=== PATIENT | female | born 2000 | race Caucasian/White ===

== ENCOUNTER 2022-05-18 07:17 | Emergency (ER) | payer OTHER, SELFPAY ==
[2022-05-18] VITALS (11 sets, daily range): BP systolic 119–146; BP diastolic 78–104; PULSE 64–86; RESP 18; TEMP 36.2; O2SAT 95–100; BMI 32.9
--- NOTE | 2022-05-18 08:14 | CRLHL7_ITS ---
For Patients: As a result of the Century Cures Act, medical imaging exams and procedure reports are released immediately into your electronic medical record. You may view this report before your referring provider. If you have questions, please contact your health care provider. INDICATION: Flank pain. TECHNIQUE: CT abdomen and pelvis without contrast. COMPARISON: None. FINDINGS: Lower chest: Unremarkable. Liver: Normal in size and attenuation. No suspicious masses. Gallbladder and bile ducts: No stones or inflammation. No biliary dilatation. Pancreas: Unremarkable. No mass or inflammation. Spleen: Normal in size. No masses. Adrenal glands: Normal in size. No nodules. Kidneys: Moderate/severe right hydroureteronephrosis due extending into the level of 5 millimeter stone in the distal right ureter located near the right adnexa (axial series 2 image 116). Small additional bilateral nonobstructing renal calculi. No left-sided hydronephrosis. GI tract: No bowel obstruction or focal bowel wall thickening. Multiple radiodense appendicoliths. Appendix otherwise normal. No diverticular disease. Vasculature: Abdominal aorta is normal in caliber. Lymph nodes: No lymphadenopathy. Peritoneum/Abdominal Wall: Unremarkable. No sign of mass or infiltration. No free air or significant free fluid. Pelvis: Unremarkable. No pelvic masses. Bones: Unremarkable for age. IMPRESSION: 1. 5 millimeter stone in the distal right ureter results in moderate-severe right hydronephrosis. 2. Additional small bilateral nonobstructing renal calculi. Please note that all CT scans at this facility use dose modulation, iterative reconstruction, and/or weight-based dosing when appropriate to reduce radiation dose to as low as reasonably achievable. Dictated by Aaron Butterfield MD @ 05/18/2022 9:18:23 AM (Electronically Signed)
--- NOTE | 2022-05-18 08:15 | CRLHL7_ITS ---
For Patients: As a result of the Century Cures Act, medical imaging exams and procedure reports are released immediately into your electronic medical record. You may view this report before your referring provider. If you have questions, please contact your health care provider. INDICATION: Abdominal Pain TECHNIQUE: Ultrasound pelvis transabdominal and transvaginal for better assessment or to better visualize the endometrium. Real-time sonographic images with spectral and color Doppler imaging of the ovaries were obtained. COMPARISON: None FINDINGS: Uterus: 7.3 x 3.2 x 4.1 cm. Normal echotexture of the myometrium. No masses. Endometrium: Transvaginal imaging was performed to better evaluate the endometrium. Endometrial thickness measures 6 mm. No sign of endometrial mass or fluid. Right ovary measures 4.5 x 2.4 x 3.0 cm and left ovary measures 3.5 x 2.3 x 2.2 cm. There is demonstration of a somewhat echogenic focus within the right ovary with likely punctate calcification measuring 1.2 x 1.0 x 1.4 centimeters. Normal arterial and venous blood flow is demonstrated in both ovaries. Cul-de-sac: No significant free fluid. IMPRESSION: Demonstration of a small echogenic focus measuring 1.2 centimeters within the right ovary with suggestion of punctate calcification which may represent a small vascular lesion versus a small dermoid. Consider follow-up with repeat ultrasound in 1 years time to document stability. Otherwise, grossly unremarkable pelvic sonogram without evidence of acute abnormality. Dictated by Seth Keller MD @ 05/18/2022 9:32:56 AM (Electronically Signed)
--- NOTE | 2022-05-18 08:16 | ED_ITS ---
HPI - General Adult General Time Seen by Provider: 08:16 Date Seen: 05/18/22 Chief complaint: Abdominal Pain Stated complaint: lower right abdominal pain Time Seen by Provider: 05/18/22 08:20 Source: patient Mode of arrival: ambulatory Limitations: no limitations History of Present Illness HPI narrative: Patient is a 22-year-old female whose last menstrual period was 2 weeks ago who presents with sudden onset of abdominal pain about 4 this morning. She presents to ER for evaluation. She is in moderate distress secondary to discomfort. She points to her right lower quadrant. She has had no control, does not believe she is , has had no vaginal bleeding or discharge. Sudden onset of the pain. She has had a ruptured ovarian cyst before, but no abdominal surgery. States this feels similar to ruptured ovarian cyst. She has no appetite, has had no vomiting. She presents to ER for evaluation. She was briefly seen by Dr. Nelson then I assumed the shift Related Data Home Medications Medication Instructions Recorded Confirmed sertraline 100 mg tablet 100 mg PO DAILY 05/18/22 05/18/22 Previous Rx's Medication Instructions Recorded ketorolac 10 mg tablet 10 mg PO Q8H PRN pain #7 tabs 05/18/22 Allergies Allergy/AdvReac Type Severity Reaction Status Date / Time No Known Drug Allergies Allergy Verified 05/18/22 07:55 Review of Systems Status of ROS: Reports: 10 or more systems reviewed and unremarkable except as noted in History and below [facility] Social History Smoking Status: Never smoker How often do you have a drink containing alcohol: never How often do you have six or more drinks on one occasion: Never AUDIT-C Alcohol total score: 0 Non-prescribed substance use: denies use Exam Narrative: Exam Narrative: Objective: Vital signs unremarkable she is in moderate distress HEENT unremarkable Neck is supple Abdomen benign soft nontender No rebound, no peritoneal signs, mild right lower quadrant tenderness tenderness to palpation Extremities are no edema Neurologic nonfocal Const: Vital Signs, click to edit/add: Vital Signs - 24 hr 05/18/22 07:55 05/18/22 09:08 05/18/22 09:30 Temperature 97.2 F L Pulse Rate Pulse Rate [Right] 75 64 Respiratory Rate 18 Blood Pressure Blood Pressure [Ri ght Upper Arm] 146/104 H 136/86 143/99 H Pulse Oximetry 97 96 Oxygen Delivery Me thod Room Air Room Air 05/18/22 09:43 05/18/22 10:00 05/18/22 10:01 Temperature Pulse Rate 86 68 68 Pulse Rate [Right] Respiratory Rate Blood Pressure 137/85 Blood Pressure [Ri ght Upper Arm] Pulse Oximetry 100 96 95 Oxygen Delivery Me thod 05/18/22 10:02 05/18/22 10:30 05/18/22 10:32 Temperature Pulse Rate 67 68 68 Pulse Rate [Right] Respiratory Rate Blood Pressure 124/81 Blood Pressure [Ri ght Upper Arm] Pulse Oximetry 95 96 96 Oxygen Delivery Me thod 05/18/22 11:00 05/18/22 11:01 Temperature Pulse Rate 76 79 Pulse Rate [Right] Respiratory Rate Blood Pressure 119/78 Blood Pressure [Ri ght Upper Arm] Pulse Oximetry 98 97 Oxygen Delivery Me thod Course Vital Signs Vital signs: Initial Vital Signs Temperature 97.2 F L 05/18/22 07:55 Temperature Source Temporal Artery Scan 05/18/22 07:55 Pulse Rate 75 05/18/22 07:55 Respiratory Rate 18 05/18/22 07:55 Blood Pressure 146/104 H 05/18/22 07:55 Blood Pressure Mean 118 05/18/22 07:55 Blood Pressure Position Sitting 05/18/22 07:55 Pulse Oximetry 97 05/18/22 07:55 Oxygen Delivery Method 05/18/22 07:55 Vital Signs Temperature 97.2 F L 05/18/22 07:55 Pulse Rate 75 05/18/22 07:55 Respiratory Rate 18 05/18/22 07:55 Blood Pressure 146/104 H 05/18/22 07:55 Pulse Oximetry 97 05/18/22 07:55 Oxygen Delivery Method 05/18/22 07:55 Temperature 97.2 F L 05/18/22 07:55 Pulse Rate 79 05/18/22 11:01 Respiratory Rate 18 05/18/22 07:55 Blood Pressure 119/78 05/18/22 11:01 Pulse Oximetry 97 05/18/22 11:01 Oxygen Delivery Method 05/18/22 09:08 Medical Decision Making MDM Narrative Medical decision making narrative: Patient presents with significant right lower quadrant pain, rule out ovarian cyst, appendicitis, kidney stone, colitis. Patient will get a CT scan of the abdomen will get a pelvic ultrasound, labs, IV fluids, will interpret the inter being drawn labs disposition pending findings above and clinical response please see addendum dictation. Addendum: The patient has a distal right kidney stone 5 mm hydronephrosis on the right. Will keep her in the ER, IV Toradol, morphine been given. IV fluids, observation hopefully this will pass. Ultrasound of pelvis looks largely unremarkable Addendum: The patient has marked relief in her pain. I suspect she passed her stone. Will have her strain her urine for 48 hours, Toradol as needed, fluids, update her regular doctor as needed, she catches the stone to bring back to the hospital for analysis. She has reported kidney stones in the past. She also has a history of kidney stones in the kidney still that are non ureteral. Lab Data Labs: Lab Results 05/18/22 05/18/22 05/18/22 Range/Units 08:05 08:05 08:05 WBC 10.92 (4.50-11.00) K/uL RBC 5.11 (4.00-5.20) m/uL Hgb 13.5 (12.0-16.0) gm/dL Hct 41.0 (33.0-51.0) % MCV 80 (80-100) fL MCH 26 (26-34) pg MCHC 33 (32-36) gm/dL RDW Coeff of Steven 13.6 (11.5-15.5) % Plt Count 346 (140-440) K/uL Neut % (Auto) 80.8 H (42.0-72.0) % Lymph % (Auto) 13.1 L (20-44) % Weber % (Auto) 4.5 (0.0-11.0) % Eos % (Auto) 1.4 (0.0-7.0) % Baso % (Auto) 0.1 (0.0-3.0) % Neut # (Auto) 8.80 H (1.7-7.0) K/uL Lymph # (Auto) 1.40 (0.90-2.90) K/uL Weber # (Auto) 0.50 (0.00-0.90) K/UL Eos # (Auto) 0.15 (0.00-0.50) K/uL Baso # (Auto) 0.01 (0.00-0.30) K/uL Sodium 139 (135-149) mmol/L Potassium 3.8 (3.6-5.1) mmol/L Chloride 108 (96-114) mmol/L Carbon Dioxide 23 (20-32) mmol/L BUN 14 (5-24) mg/dL Creatinine 1.0 (0.5-1.5) mg/dL Estimated Creat Clear 70.98 Estimated GFR 83 ml/min Glucose 145 H (60-115) mg/dL Calcium 9.5 (8.4-10.6) mg/dL Total Bilirubin 0.6 (0.1-1.5) mg/dL Direct Bilirubin 0.1 (0.0-0.5) mg/dL AST 28 (12-35) U/L ALT 25 (4-35) U/L Alkaline Phosphatase 96 (40-150) U/L C-Reactive Protein 0.9 (0.5-1.0) mg/dL Total Protein 8.1 (6.0-8.3) g/dL Albumin 4.7 (3.3-5.0) g/dL Amylase 78 (18-89) U/L HCG, Qual Negative (Negative) Urine Color (Yellow) Urine Appearance (Clear) Urine pH (5.0-8.5) Ur Specific [place] (1.000-1.030) Urine Protein (Negative) Urine Glucose (UA) (Negative) Urine Ketones (Negative) Urine Blood (Negative) Urine Nitrite (Negative) Urine Bilirubin (Negative) Urine Urobilinogen (0.2-1.0) Ur Leukocyte Esterase (Negative) Urine RBC (0-2) Urine WBC (0-5) Ur Squamous Epith Cells (None-Few) Urine Bacteria (None) SARS-CoV-2 (PCR) (Negative) Influenza Type A (PCR) (Negative) Influenza Type B (PCR) (Negative) RSV (PCR) (Negative) 05/18/22 05/18/22 Range/Units 08:05 08:15 WBC (4.50-11.00) K/uL RBC (4.00-5.20) m/uL Hgb (12.0-16.0) gm/dL Hct (33.0-51.0) % MCV (80-100) fL MCH (26-34) pg MCHC (32-36) gm/dL RDW Coeff of Steven (11.5-15.5) % Plt Count (140-440) K/uL Neut % (Auto) (42.0-72.0) % Lymph % (Auto) (20-44) % Weber % (Auto) (0.0-11.0) % Eos % (Auto) (0.0-7.0) % Baso % (Auto) (0.0-3.0) % Neut # (Auto) (1.7-7.0) K/uL Lymph # (Auto) (0.90-2.90) K/uL Weber # (Auto) (0.00-0.90) K/UL Eos # (Auto) (0.00-0.50) K/uL Baso # (Auto) (0.00-0.30) K/uL Sodium (135-149) mmol/L Potassium (3.6-5.1) mmol/L Chloride (96-114) mmol/L Carbon Dioxide (20-32) mmol/L BUN (5-24) mg/dL Creatinine (0.5-1.5) mg/dL Estimated Creat Clear Estimated GFR ml/min Glucose (60-115) mg/dL Calcium (8.4-10.6) mg/dL Total Bilirubin (0.1-1.5) mg/dL Direct Bilirubin (0.0-0.5) mg/dL AST (12-35) U/L ALT (4-35) U/L Alkaline Phosphatase (40-150) U/L C-Reactive Protein (0.5-1.0) mg/dL Total Protein (6.0-8.3) g/dL Albumin (3.3-5.0) g/dL Amylase (18-89) U/L HCG, Qual (Negative) Urine Color Yellow (Yellow) Urine Appearance Clear (Clear) Urine pH 8.5 (5.0-8.5) Ur Specific [place] 1.020 (1.000-1.030) Urine Protein Trace A (Negative) Urine Glucose (UA) Negative (Negative) Urine Ketones Negative (Negative) Urine Blood 2+ A (Negative) Urine Nitrite Negative (Negative) Urine Bilirubin Negative (Negative) Urine Urobilinogen 0.2 (0.2-1.0) Ur Leukocyte Esterase Negative (Negative) Urine RBC 25-50 A (0-2) Urine WBC 5-10 A (0-5) Ur Squamous Epith Cells Few (None-Few) Urine Bacteria Few A (None) SARS-CoV-2 (PCR) Negative SARS-CoV-2 (Negative) Influenza Type A (PCR) Negative PCR FLU A (Negative) Influenza Type B (PCR) Negative PCR FLU B (Negative) RSV (PCR) Negative PCR RSV (Negative) Discharge Plan Discharge Clinical Impression: Abdominal pain, right lower quadrant, Kidney calculi Patient Disposition: Home w/ Parent or Adult Condition: Improved Additional Instructions: Light activity, fluids, Toradol as needed for pain, strain urine for 48 hours, may return to stone here for analysis if desired. She can contact her regular doctor regarding that. She could contact 1 of our clinic doctors here at the hospital if she has any concerns or problems she was comfortable distal follow up as directed. Activity Level: Light activity Discharge Diet: Regular Prescriptions: New ketorolac 10 mg tablet 10 mg PO Q8H PRN (Reason: pain) Qty: 7 0RF No Action sertraline 100 mg tablet 100 mg PO DAILY Stand Alone Forms: [employer] Info Instructions
[2022-05-18] MEDS: 0.9 % SODIUM CHLORIDE 1000 ml 1,000 ML 6000 ML IV (08:22)
[2022-05-18] MEDS: MORPHINE 4 MG/ML INJ IVP (08:23)
[2022-05-18 08:25] LABS: Basophils Absolute Auto 0.01 K/uL (0.00-0.30); Basophils Percent Auto 0.1 % (0.0-3.0); Eosinophils Absolute Auto 0.15 K/uL (0.00-0.50); Eosinophils Percent Auto 1.4 % (0.0-7.0); Hemoglobin* 13.5 gm/dL (12.0-16.0); Immature Granulocytes Abs Auto 0.01 K/uL (0.00-0.30); Immature Granulocytes Pct Auto 0.1 %; Lymphocytes Percent Auto 13.1 % (20-44); Mean Corpuscular HGB Conc 33 gm/dL (32-36); Mean Corpuscular Hemoglobin 26 pg (26-34); Mean Corpuscular Volume 80 fL (80-100); Monocytes Percent Auto 4.5 % (0.0-11.0); Neutrophils Percent Auto 80.8 % (42.0-72.0); Platelet Count* 346 K/uL (140-440); RDW Coefficient of Variation % 13.6 % (11.5-15.5); Red Blood Count 5.11 m/uL (4.00-5.20); White Blood Count* 10.92 K/uL (4.50-11.00)
[2022-05-18 08:26] LABS: Slide Review Reflex No
--- OUTSIDE RECORDS SUMMARY | 2022-05-18 08:27 | XMS_ITS ---
:2000 Author Support Name Relationship Address Phone EDILMA CHILDRESS Unavailable [address] [facility] [phone] [place] [address] PROBLEMS Unknown Problems ALLERGIES No Information ENCOUNTERS Encounter Location Date Diagnosis Migration Location UNKNOWN Oct, Migration Location UNKNOWN Oct, IMMUNIZATIONS No Known Immunizations SOCIAL HISTORY Never Assessed REASON FOR REFERRAL FUNCTIONAL STATUS PLAN OF CARE VITAL SIGNS MEDICATIONS Unknown Medications PROCEDURES No Known procedures RESULTS No Results REASON FOR VISIT
[2022-05-18] MEDS: ONDANSETRON 2 MG/ML inj 4 MG IVP (08:33)
[2022-05-18 08:38] LABS: Albumin* 4.7 g/dL (3.3-5.0); Chloride* 108 mmol/L (96-114)
[2022-05-18 08:39] LABS: Potassium* 3.8 mmol/L (3.6-5.1); Sodium* 139 mmol/L (135-149)
[2022-05-18 08:41] LABS: Amylase* 78 U/L (18-89); Bilirubin Direct* 0.1 mg/dL (0.0-0.5); Bilirubin Total* 0.6 mg/dL (0.1-1.5); Carbon Dioxide* 23 mmol/L (20-32); Est. Creatinine Clearance* 70.98; Estimated Glomerular Filt Rate 83 ml/min; Total Protein* 8.1 g/dL (6.0-8.3)
[2022-05-18 08:42] LABS: Alanine Aminotransferase* 25 U/L (4-35); Alkaline Phosphatase* 96 U/L (40-150); Aspartate Amino Transferase* 28 U/L (12-35); Blood Urea Nitrogen* 14 mg/dL (5-24); Calcium* 9.5 mg/dL (8.4-10.6); Glucose* 145 mg/dL (60-115)
[2022-05-18 08:44] LABS: C Reactive Protein* 0.9 mg/dL (0.5-1.0)
[2022-05-18 09:15] LABS: HCG Qualitative Serum* Negative (Negative)
[2022-05-18 09:17] LABS: PCR FLU A Negative PCR FLU A (Negative); PCR FLU B Negative PCR FLU B (Negative); PCR RSV Negative PCR RSV (Negative)
[2022-05-18 09:19] LABS: SARS PCR* Negative SARS-CoV-2 (Negative)
[2022-05-18] MEDS: KETOROLAC 30 MG/ML inj IVP (09:39)
[2022-05-18 11:53] LABS: Appearance Urine Clear (Clear); Bilirubin Urine Negative (Negative); Blood Urine 2+ (Negative); Color Urine Yellow (Yellow); Glucose Urine Negative (Negative); Ketones Urine Negative (Negative); Leukocyte Esterase Urine Negative (Negative); Nitrite Urine Negative (Negative); Protein Urine Trace (Negative); Urobilinogen Urine 0.2 (0.2-1.0); pH Urine 8.5 (5.0-8.5)
[2022-05-18 12:02] LABS: RBC Urine 25-50 (0-2)
[2022-05-18 12:03] LABS: Bacteria Urine Few; Squamous Epithelial Cell Urine Few (None-Few)
== END 2022-05-18 11:36 | disposition home or self-care (01) ==
PROVIDERS: Emergency Provider Family Medicine
DX: N20.0 Calculus of kidney (principal)
CPT/HCPCS: 36415; 74176; 76830; 80048; 80076; 81001; 82150; 84703; 85025; 86140; 87086; 87502; 87634; 87635; 93976; 96374; 96375; 99284; 99285; J1885; J2270; J2405; J7030